=== PATIENT | female | born 1995 | race Caucasian/White ===

== ENCOUNTER 2018-02-18 02:43 | Emergency (ER) | payer OTHER, SELFPAY ==
[~2018-02-18] VITALS: Ht 154.9 cm; Wt 84.8 kg
[~2018-02-18 02:43] MED LIST: IBUP-974 PO; PREN-546 PO
[2018-02-18 03:07] VITALS: BP 135/88
--- NOTE | 2018-02-18 03:12 | NUR ---
PT AMBULATED TO LOBY WITH VSS. ESCORTED BY .
--- NOTE | 2018-02-18 04:27 | NUR ---
PT TO ER BED 8
--- NOTE | 2018-02-18 04:30 | NUR ---
PT PRESENTED TO ER WITH C/O VAGINAL BLEEDING X 1 DAY. PT STATES SHE IS 11 WEEKS AND STARTED HAVING SOME VAGINAL BLEEDING YESTERDAY. PT DENIES PAIN 0/10. PT STATES SHEHAS CARE AND IS TAKING GUMMY CALCIUM PILLS AND PILLS. NO MEDICAL HX AND NKA. AT BEDSIDE. SKIN IS PINK/WARM/DRY; AAOX4 WITH EVEN AND STEADY GAIT VSS; PATIENT POSITIONED FOR COMFORT; HOB ELEVATED; BEDRAILS UP X2; BED DOWN. ER MD MADE AWARE OF PT STATUS.
--- NOTE | 2018-02-18 06:15 | NUR ---
PT SITTING UP IN BED, VITALS STABLE, AT BEDSIDE.
--- NOTE | 2018-02-18 07:15 | NUR ---
GAVE REPORT TO LAXMI. PT SITTING UP IN BED, AT BEDESIDE, VITALS STABLE.
--- NOTE | 2018-02-18 07:20 | NUR ---
RECIEVED REPORT FROM LUPE
--- NOTE | 2018-02-18 07:35 | NUR ---
PATIENT AWAITING FOR DISPOSITION.PATIENT STATED SHE FEELS BETTER AND LESS VAGINAL BLEEDING.
[2018-02-18 08:14] LABS: BASOPHILS % (AUTO) 0.2 % (0.0-2.0); EOSINOPHILS % (AUTO) 0.3 % (0.0-4.0); HEMATOCRIT 37.9 % (36-48); HEMOGLOBIN 12.8 g/dL (12.0-16.0); LYMPHOCYTES # (AUTO) 2.6 K/uL (2.5-16.5); MEAN CORPUSCULAR HEMOGLOBIN 31 pg (27-31); MEAN CORPUSCULAR HGB CONC 34 g/dL (33-37); MEAN CORPUSCULAR VOLUME 90.9 fL (80-94); MONOCYTES # (AUTO) 0.5 K/uL (0.8-1.0); MONOCYTES % (AUTO) 4.3 % (1.7-9.3); NEUTROPHILS # (AUTO) 8.3 K/uL (1.8-7.7); NEUTROPHILS % (AUTO) 72.2 % (42.2-75.2); PLATELET COUNT (AUTO) 176 K/uL (140-450); RED BLOOD CELL COUNT(AUTO) 4.17 MIL/uL (4.20-5.40); RED CELL DISTRIBUTION WIDTH 13.5 % (11.6-13.7); WHITE BLOOD COUNT (AUTO) 11.5 K/uL (4.8-10.8)
--- NOTE | 2018-02-18 08:20 | NUR ---
PATIENT COMFORTABLE AT THIS TIME. DENIES DISCOMFORT. WITH PATIENT
[2018-02-18 08:21] LABS: APPEARANCE,URINE HAZY (CLEAR); BILIRUBIN,URINE NEGATIVE (NEGATIVE); BLOOD, URINE 3+ (NEGATIVE); COLOR,URINE YELLOW (YELLOW); LEUKOCYTE ESTERASE ,URINE NEGATIVE (NEGATIVE); NITRITE, URINE NEGATIVE (NEGATIVE); PH,URINE 6.5 (5.0-9.0); UGLUCOSE NEGATIVE (NEGATIVE)
[2018-02-18 08:43] VITALS: BP 123/81
--- NOTE | 2018-02-18 08:43 | NUR ---
Patient discharged with v/s stable. Written and verbal after care instructions given and explained. Patient verbalized understanding. Ambulatory with steady gait. All questions addressed prior to discharge. Advised to follow up with PMD.
[2018-02-18 08:48] LABS: RBC,URINE TOO NUMEROUS TO COUN /HPF (0-5); WBC,URINE 0-5 (RARE) /HPF (0-5)
== END 2018-02-18 08:43 | disposition home or self-care (01) ==
LOC: MED 02:43
DX: O20.0 Threatened abortion (principal); Z3A.13 13 weeks gestation of pregnancy; Z79.899 Other long term (current) drug therapy
CPT/HCPCS: 36415; 76801; 81001; 84702; 85025; 86900; 86901; 99285; Q0092